=== PATIENT | female | born 1980 | race Caucasian/White ===

== ENCOUNTER 2021-03-08 10:33 | Emergency (ER) | payer BC ==
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
== END 2021-03-08 12:25 | disposition home or self-care (01) ==
LOC: MW.ED 10:33
DX: S70.11XA Contusion of right thigh, initial encounter (principal); S00.83XA Contusion of other part of head, initial encounter; Y04.0XXA Assault by unarmed brawl or fight, initial encounter
CPT/HCPCS: 99283